=== PATIENT | female | born 1955 | race Two or more races ===

== ENCOUNTER 2017-05-06 03:48 | Emergency (ER) | payer OTHER ==
[~2017-05-06] VITALS: Ht 154.9 cm; Wt 86.2 kg
[~2017-05-06 03:48] MED LIST: FAMO-132 PO
[2017-05-06] MEDS ORDERED: ALEN70TA3 PO (04:12)
[2017-05-06] MEDS ORDERED: ERGO500040 PO (04:12)
--- NOTE | 2017-05-06 04:23 | NUR ---
62 Y/O FEMALE PLACED IN 2A C/O ABDOMINAL PAIN AND CONSTIPATION.
[2017-05-06 05:10] LABS: *BILIRUBIN,URIN NEGATIVE (NEGATIVE); *BLOOD, URINE 1+ (NEGATIVE); *CLARITY,URINE CLOUDY (CLEAR); *COLOR,URINE YELLOW (YELLOW); *KETONES,URINE NEGATIVE (NEGATIVE); *PROTEIN,URINE NEGATIVE (NEGATIVE); *UROBILINOGEN,URINE 0.2 E.U./dl (NORMAL); LEUKOCYTE ESTERASE ,URINE 3+ (NEGATIVE); NITRITE, URINE NEGATIVE (NEGATIVE); UGLUCOSE NEGATIVE (NEGATIVE)
[2017-05-06 05:18] LABS: WBC,URINE 50-80 /HPF (0-3)
[2017-05-06 05:19] LABS: BACTERIA,URINE MODERATE /HPF (NONE SEEN); SQUAMOUS EPITHELIAL CELL,UR MANY /HPF (NONE SEEN)
[2017-05-06] MEDS ORDERED: ONDANSETRON 4 MG/2 ML VIAL IM ONE (05:45)
[2017-05-06] MEDS ORDERED: MORPHINE SULFATE 4 MG/1 ML DISP.SYRIN IM ONE (05:45)
[2017-05-06] MEDS ORDERED: KETOROLAC TROMETHAMINE 15 MG INJ IM ONE (05:45)
--- NOTE | 2017-05-06 05:52 | NUR ---
PT SEEN BY . PXR DONE. H/L PLACED AND MEDICATION GIVEN
[2017-05-06] MEDS ORDERED: ONDANSETRON 4 MG/2 ML VIAL ONE (06:11)
[2017-05-06] MEDS ORDERED: KETOROLAC TROMETHAMINE 15 MG INJ ONE (06:11)
--- NOTE | 2017-05-06 06:16 | NUR ---
pt resting. feeling a little better following iv medications. lab at bed side drawing blood.
[2017-05-06 06:48] LABS: BASOPHILS % (AUTO) 0.6 % (0.0-2.0); EOSINOPHILS # (AUTO) 0.2 K/uL (0.0-0.7); EOSINOPHILS % (AUTO) 3.5 % (0.0-7.0); HEMATOCRIT 38.8 % (31.2-41.9); HEMOGLOBIN 12.9 g/dL (10.9-14.3); LYMPHOCYTES # (AUTO) 2.5 K/uL (20.0-40.0); LYMPHOCYTES % (AUTO) 37.4 % (20.5-51.5); MEAN CORPUSCULAR HEMOGLOBIN 29.3 uug (24.7-32.8); MEAN CORPUSCULAR HGB CONC 33 g/dL (32.3-35.6); MEAN CORPUSCULAR VOLUME 87.7 fL (75.5-95.3); MONOCYTES # (AUTO) 0.5 K/uL (2.0-10.0); MONOCYTES % (AUTO) 6.6 % (0.0-11.0); NEUTROPHILS # (AUTO) 3.5 K/uL (1.8-8.9); NEUTROPHILS % (AUTO) 51.9 % (38.5-71.5); PLATELET COUNT (AUTO) 293 K/uL (179-408); RED BLOOD CELL COUNT(AUTO) 4.42 MIL/uL (3.63-4.92); WHITE BLOOD COUNT (AUTO) 6.8 K/uL (3.8-11.8)
[2017-05-06 08:38] LABS: CREATININE 0.7 mg/dL (0.6-1.3); POTASSIUM 3.7 mmol/L (3.5-5.1)
[2017-05-06 08:44] LABS: BILIRUBIN,DIRECT 0.2 mg/dL (0.0-0.2); BILIRUBIN,TOTAL 0.6 mg/dL (0.2-1.0); TOTAL PROTEIN, SERUM 6.7 g/dL (6.4-8.2)
--- NOTE | 2017-05-06 09:25 | NUR ---
DISCHARGE INSTRUCTIONS GIVEN PER MD ORDER. PT HAD BEEN COMPLAINING OF PAIN IN IV SITE. SALINE LOCK DCD. PT INSTRUCTED TO APPLY WARM COMPRESS TO SITE NEEDED. PRESCRIPTION AND DIAGNOSIS EXPLAINED - PT REMAINS RECEPTIVE. DISCHARGED IN STABLE CONDITION.
[2017-05-06 09:56] VITALS: BP 140/70
== END 2017-05-06 09:30 | disposition home or self-care (01) ==
LOC: ER 03:50
DX: N39.0 Urinary tract infection, site not specified (principal); M54.5 Low back pain
CPT/HCPCS: 36415; 83690; 85025; 87077; 87086; 93005; A4663; J1885; J2405

== ENCOUNTER 2017-05-31 16:33 | Emergency (ER) | payer OTHER ==
[~2017-05-31] VITALS: Ht 154.9 cm; Wt 86.2 kg
[~2017-05-31 16:33] MED LIST changes: +ALEN70TA3 PO; +ERGO500040 PO
--- NOTE | 2017-05-31 17:07 | NUR ---
Dr. Schroeder at bedside for MSE.
[2017-05-31] MEDS ORDERED: PHENAZOPYRIDINE HCL 100 MG TABLET PO ONE (17:30)
[2017-05-31] MEDS ORDERED: DOXYCYCLINE HYCLATE 100 MG TABLET PO ONE (17:30)
[2017-05-31 17:31] LABS: *BILIRUBIN,URIN NEGATIVE (NEGATIVE); *BLOOD, URINE 3+ (NEGATIVE); *CLARITY,URINE SLIGHTLY CLOUDY (CLEAR); *COLOR,URINE YELLOW (YELLOW); *KETONES,URINE NEGATIVE (NEGATIVE); *PROTEIN,URINE NEGATIVE (NEGATIVE); *UROBILINOGEN,URINE 0.2 E.U./dl (NORMAL); LEUKOCYTE ESTERASE ,URINE 2+ (NEGATIVE); NITRITE, URINE NEGATIVE (NEGATIVE); PH,URINE 6.5 (5.0-8.0); UGLUCOSE NEGATIVE (NEGATIVE)
[2017-05-31 17:39] LABS: BACTERIA,URINE FEW /HPF (NONE SEEN); RBC,URINE 20-50 /HPF (0-3); SQUAMOUS EPITHELIAL CELL,UR FEW /HPF (NONE SEEN); WBC,URINE 50-80 /HPF (0-3)
[2017-05-31] MEDS ORDERED: PHENAZOPYRIDINE HCL 100 MG TABLET ONE (17:39)
[2017-05-31] MEDS ORDERED: DOXYCYCLINE HYCLATE 100 MG TABLET ONE (17:40)
--- NOTE | 2017-05-31 18:05 | NUR ---
Patient discharged to home in stable conditon. Written and verbal after care instructions given. Patient verbalizes understanding of instructions.
== END 2017-05-31 18:10 | disposition home or self-care (01) ==
LOC: ER 16:35
DX: N39.0 Urinary tract infection, site not specified (principal); F17.200 Nicotine dependence, unspecified, uncomplicated; Z90.49 Acquired absence of other specified parts of digestive tract
CPT/HCPCS: 87077; 87086; A4663

== ENCOUNTER 2017-08-16 08:32 | Emergency (ER) | payer OTHER ==
[~2017-08-16] VITALS: Ht 154.9 cm; Wt 86.2 kg
[2017-08-16 08:57] LABS: *BILIRUBIN,URIN NEGATIVE (NEGATIVE); *BLOOD, URINE 3+ (NEGATIVE); *CLARITY,URINE CLOUDY (CLEAR); *COLOR,URINE Orange (YELLOW); *KETONES,URINE NEGATIVE (NEGATIVE); *PROTEIN,URINE 2+ (NEGATIVE); LEUKOCYTE ESTERASE ,URINE 3+ (NEGATIVE); NITRITE, URINE POSITIVE (NEGATIVE); PH,URINE 5.5 (5.0-8.0); UGLUCOSE TRACE (NEGATIVE)
--- NOTE | 2017-08-16 08:58 | NUR ---
Dr Calderon at [facility] bedside for MSE.
[2017-08-16 09:13] LABS: BACTERIA,URINE MODERATE /HPF (NONE SEEN); RBC,URINE 20-50 /HPF (0-3); SQUAMOUS EPITHELIAL CELL,UR FEW /HPF (NONE SEEN); WBC,URINE TNTC /HPF (0-3)
[2017-08-16] MEDS ORDERED: CEFTRIAXONE 1 G VIAL ONE (09:28)
[2017-08-16] MEDS ORDERED: CEFTRIAXONE 1 G in IV DEXTROSE 5% 50 ML IV ONE (09:30)
--- NOTE | 2017-08-16 10:07 | NUR ---
IV removed. Catheter intact and site benign. Pressure and 4x4 gauze applied to site. No bleeding noted.
[2017-08-16 10:08] VITALS: BP 117/69
--- NOTE | 2017-08-16 10:09 | NUR ---
Patient discharged to home in stable conditon. Written and verbal after care instructions given. Patient verbalizes understanding of instructions.
== END 2017-08-16 10:09 | disposition home or self-care (01) ==
LOC: ER 08:32
DX: N39.0 Urinary tract infection, site not specified (principal); N30.80 Other cystitis without hematuria; K21.9 Gastro-esophageal reflux disease without esophagitis; F17.210 Nicotine dependence, cigarettes, uncomplicated; Z90.49 Acquired absence of other specified parts of digestive tract; Z79.899 Other long term (current) drug therapy
CPT/HCPCS: 87077; 87086; A4663; J0696